=== PATIENT | female | born 1990 | race African-American/Black ===

== ENCOUNTER 2024-05-18 10:27 | Outpatient (CLI) | payer OTHER | END 2024-05-18 10:28 | disposition home or self-care (01) | LOC: PRENATAL 10:27 | PROVIDERS: ATTEND Obstetrics & Gynecology Maternal & Fetal Medicine | DX: O26.843 Uterine size-date discrepancy, third trimester (principal); O36.8130 Decreased fetal movements, third trimester, not applicable or unspecified; Z3A.33 33 weeks gestation of pregnancy ==

== ENCOUNTER 2024-06-23 03:24 | Inpatient (IN) | payer OTHER ==
[~2024-06-23] VITALS: Ht 154.9 cm; Wt 63.5 kg
[2024-06-23 04:43] VITALS: BP 111/75
[2024-06-23] MEDS ORDERED: PRENATABS RX T1 EACH PO (04:50)
[2024-06-23] MEDS ORDERED: VALTREX1000 MG PO (04:51)
[2024-06-23 06:08] LABS: PH,URINE 6.5 (5.0-8.0); URINE APPEARANCE Clear; URINE BACTERIA 260.8 uL (0.0-1933); URINE BILIRRUBIN Negative (NEGATIVE); URINE BLOOD Negative; URINE COLOR Yellow; URINE EPITHELIAL CELLS 10.8 uL (0.0-38.8); URINE GLUCOSE Negative (NEGATIVE); URINE KETONE Negative (NEGATIVE); URINE LEUKOCYTE Negative; URINE NITRATE Negative; URINE PROTEIN Negative (NEGATIVE); URINE RBC 7.3 uL (0.0-20.8); URINE WBC 10.9 uL (0.0-23.2)
[2024-06-23 06:12] LABS: HEMATOCRIT 37.3 % (36.0-45.00); MEAN CELL VOLUME 90.3 fL (80.00-100.00); MEAN CORPUSCULAR HEMOGLOBIN 31.4 pg (27.00-32.0); MEAN CORPUSCULAR HGB CONC 34.8 g/dl (32.0-36.0); PLATELET COUNT 215 K/uL (150-450); RED BLOOD COUNT 4.13 M/uL (4.00-6.00); RED CELL DISTRIBUTION WIDTH 14.1 % (11.5-14.5)
[2024-06-23 06:18] LABS: URINE CAST 0.45 uL (0.0-1.40)
[2024-06-23] MEDS ORDERED: OXYTOCIN 20 UNITS/500ML RL PIGGYBAG IV ONE (06:26)
[2024-06-23] MEDS ORDERED: RINGERS SOLUTION,LACTATED 1,000 ML IV SCH (07:00)
[2024-06-23] MEDS ORDERED: OXYTOCIN 500 ML IV ONE (07:00)
[2024-06-23 07:02] LABS: ALBUMIN 2.6 gm/dL (3.4-5.0); BILIRUBIN TOTAL 0.47 mg/dL (0.3-1.2); CALCIUM 9.2 mg/dL (8.5-10.1); CREATININE SERUM 0.48 mg/dL (0.55-1.02); GFR 149.88; GLOBULINA 3.9 G/DL (2.4-3.5); POTASSIUM 4.12 mEq/L (3.5-5.1); TOTAL PROTEIN 6.5 gm/dL (6.4-8.2)
[2024-06-23 07:06] LABS: INR 0.94; PARTIAL THROMBOPLASTIN TIME 22.3 SECONDS (22.0-34.0); PROTHROMBIN TIME 10.3 SECONDS (9.0-11.5)
[2024-06-23 07:46] VITALS: BP 121/71
[2024-06-23 11:11] VITALS: BP 118/71
[2024-06-23] MEDS ORDERED: MEPERIDINE HCL/PF 50 MG/ML VIAL IV ONE (11:15)
[2024-06-23] MEDS ORDERED: PROMETHAZINE HCL 25 MG/ML AMPUL IV NR (11:15)
[2024-06-23 15:56] VITALS: BP 129/69
[2024-06-23] MEDS ORDERED: CHLORHEXIDINE GLUCONATE 120 ML BOTTLE TOP ONE (18:29)
[2024-06-23] MEDS ORDERED: ERYTHROMYCIN BASE 1 GM TUBE OP ONE ×2 (18:29→20:27)
[2024-06-23] MEDS ORDERED: LIDOCAINE HCL 1% 10ML VIAL ONE (18:30)
[2024-06-23] MEDS ORDERED: OXYTOCIN 20 UNITS/1000ML RL PIGGYBAG IV ONE (18:31)
[2024-06-23 19:44] VITALS: BP 123/67
[2024-06-23] MEDS ORDERED: OXYTOCIN 10 UNITS/ML VIAL ONE (20:26)
[2024-06-23] MEDS ORDERED: CEFAZOLIN SODIUM 1,000 MG VIAL ONE (21:08)
[2024-06-23] MEDS ORDERED: PROMETHAZINE HCL 50 MG/ML AMPUL IM PRN (21:45)
[2024-06-23] MEDS ORDERED: MEPERIDINE HCL/PF 50 MG/ML VIAL IM PRN (21:45)
[2024-06-24] MEDS ORDERED: CEFAZOLIN SODIUM 1,000 MG VIAL IV SCH (02:00)
[2024-06-24 03:24] VITALS: BP 117/78
[2024-06-24 05:50] LABS: HEMATOCRIT 33.3 % (36.0-45.00); MEAN CELL VOLUME 91.8 fL (80.00-100.00); MEAN CORPUSCULAR HGB CONC 34.5 g/dl (32.0-36.0); PLATELET COUNT 203 K/uL (150-450); RED BLOOD COUNT 3.63 M/uL (4.00-6.00); RED CELL DISTRIBUTION WIDTH 14.3 % (11.5-14.5)
[2024-06-24 05:54] LABS: HEMOGLOBIN 11.5 g/dL (12.0-15.00); MEAN CORPUSCULAR HEMOGLOBIN 31.6 pg (27.00-32.0)
[2024-06-24] MEDS ORDERED: OxyCODONE HCL/APAP UD (PERCOCET) PO PRN (06:30)
[2024-06-24] MEDS ORDERED: ACETAMINOPHEN 500 MG GEL..CAP PO PRN (06:30)
[2024-06-24 09:15] VITALS: BP 135/80
[2024-06-24 17:06] VITALS: BP 134/84
[2024-06-25 02:39] VITALS: BP 126/81
[2024-06-25 09:00] VITALS: BP 126/80
[2024-06-25 16:00] VITALS: BP 122/85
[2024-06-25 22:00] VITALS: BP 129/80
[2024-06-26 02:08] VITALS: BP 130/79
[2024-06-26 10:03] VITALS: BP 130/88
== END 2024-06-26 14:00 | disposition home or self-care (01) | DRG 788 ==
LOC: LDR 03:24 → O/R 21:45 → OB/GYN 22:53
PROVIDERS: ADMIT Specialist; ATTEND Specialist
PROC: 4A1HXCZ Monitoring of Products of Conception, Cardiac Rate, External Approach (ICD-10-PCS; 2024-06-23)
PROC: 10D00Z1 Extraction of Products of Conception, Low, Open Approach (ICD-10-PCS; principal; 2024-06-23 20:00)
DX: O62.0 Primary inadequate contractions (principal); Z3A.39 39 weeks gestation of pregnancy; Z37.0 Single live birth; Z20.822 Contact with and (suspected) exposure to COVID-19